=== PATIENT | male | born 1970 | race Caucasian/White ===

== ENCOUNTER 2017-06-16 15:29 | Emergency (ER) | payer MEDICAID ==
--- NOTE | 2017-06-16 16:27 | XRAY Report ---
EXAM: CHEST RADIOGRAPHY EXAM DATE: 06/16/2017 04:12 PM. CLINICAL HISTORY: Chest pain. COMPARISON: 06/09/2014. TECHNIQUE: 1 view. FINDINGS: Lungs/Pleura: No focal opacities evident. No pleural effusion. No pneumothorax. Mediastinum: Within exam limitations, the cardiomediastinal contour is normal. Other: There are old bilateral rib fractures without significant change. IMPRESSION: Old rib fractures. No acute cardiopulmonary abnormality. [facility] Referring Provider Line: [phone] SITE ID: [id number]
--- NOTE | 2017-06-16 16:56 | ED Physician Documentation ---
PD HPI CHEST PAIN - Stated complaint Stated Complaint: CHEST PX - Chief complaint Chief Complaint: Cardiac - History obtained from History obtained from: Patient - History of Present Illness Timing - onset: How many hours ago (5), Today (soon after lunch, feeling of discomfort and burning in epigastric area. Stomach fullness. Does have history of cardiomyopathy in the past.) Timing - onset during: Rest Timing - duration: Hours (5) Timing - details: Abrupt onset, Still present, Waxing and waning Quality: Pressure, Aching, Indigestion Location: Epigastric Radiation: Back Worsened by: No: Exertion, Inspiration, Movement Associated symptoms: Shortness of air. No: Diaphoresis, Nausea, Feeling faint / dizzy, Palpitations, Cough Similar symptoms before: Diagnosis (has had GERD in the past, also with history of cardiomyopathy in the past so concern of heart cause.) Recently seen: Not recently seen Review of Systems Constitutional: denies: Fever, Chills Nose: denies: Rhinorrhea / runny nose, Congestion Throat: denies: Sore throat Cardiac: denies: Chest pain / pressure, Palpitations, Pedal edema, Calf pain Respiratory: reports: Dyspnea. denies: Cough, Wheezing GI: reports: Abdominal Pain. denies: Nausea, Vomiting, Diarrhea, Bloody / black stool : denies: Dysuria, Frequency Skin: denies: Rash, Lesions Musculoskeletal: denies: Extremity swelling Neurologic: denies: Generalized weakness, Near syncope Endocrine: denies: Easy bruising / bleeding Immunocompromised: denies: Immunocompromised PD PAST MEDICAL HISTORY - Past Medical History Cardiovascular: Congestive heart failure, Hypertension, High cholesterol Respiratory: COPD, Shortness of breath Endocrine/Autoimmune: None GI: None : None HEENT: None Psych: None, Anxiety Musculoskeletal: None Derm: None - Past Surgical History Past Surgical History: Yes Ortho: Other - Present Medications Home Medications: Ambulatory Orders Medication Instructions Recorded Confirmed Carvedilol 3 tab PO BID 12/06/13 06/16/17 Lisinopril 15 mg PO DAILY 12/06/13 06/16/17 Mirtazapine [Remeron] 15 mg PO DAILY 12/06/13 06/16/17 Buspirone HCl 1 tab DAILY 06/09/14 06/16/17 Multivitamin [Multivitamins] 1 tab DAILY 06/09/14 06/16/17 raNITIdine [Zantac] 1 tab QPM 06/09/14 06/16/17 Furosemide [Lasix] 40 mg PO .FREQ 06/16/17 06/16/17 Omeprazole 20 mg PO 06/16/17 Ondansetron Odt [Zofran] 4 mg TL Q6H PRN #15 tablet 06/16/17 Prazosin [Minipress] 1 mg PO QPM 06/16/17 06/16/17 - Allergies Allergies/Adverse Reactions: Allergies Allergy/AdvReac Type Severity Reaction Status Date / Time No Known Drug Allergies Allergy Verified 06/16/17 15:38 - Social History Does the pt smoke?: No Smoking Status: Never smoker Does the pt drink ETOH?: No Does the pt have substance abuse?: No - Family History Family history: reports: Non contributory - Immunizations Immunizations are current?: No Immunizations: TDAP >10years/unknown - POLST Patient has POLST: No PD ED PE NORMAL - Vitals Vital signs reviewed: Yes - General General: Alert and oriented X 3, No acute distress, Well developed/nourished - HEENT HEENT: Moist mucous membranes, Pharynx benign - Neck Neck: Supple, no meningeal sign, No adenopathy - Cardiac Cardiac: RRR, No murmur - Respiratory Respiratory: Clear bilaterally - Abdomen Abdomen: Normal bowel sounds, Soft, Non distended, No organomegaly, Other (some tenderness in eipgastric area without guarding nor percussion tenderness. ) - Derm Derm: Normal color, Warm and dry - Extremities Extremities: No deformity, No tenderness to palpate, No edema, No calf tenderness / cord - Neuro Neuro: Alert and oriented X 3, No motor deficit, Normal speech - Psych Psych: Normal mood, Normal affect Results - Vitals Vitals: Vital Signs - 24 hr 06/16/17 06/16/17 15:35 17:35 Temperature 36.8 C Heart Rate 76 59 L Respiratory 18 18 Rate Blood Pressure 152/100 H 153/94 H O2 Saturation 100 100 Oxygen O2 Source Room air - EKG (time done) 15:51 Rate: Rate (enter#) (65) Rhythm: NSR [place]: Normal Intervals: Normal PA QRS: Normal Ischemia: Normal ST segments. No: ST elevation c/w ischemia, ST depression - Labs Labs: Laboratory Tests 06/16/17 06/16/17 06/16/17 17:05 17:05 17:05 WBC 13.1 H RBC 4.97 Hgb 14.9 Hct 44.7 MCV 90.0 MCH 30.0 MCHC 33.4 RDW 14.5 Plt Count 255 MPV 8.8 Neut # 10.5 H Lymph # 1.4 L [place] # 1.0 Eos # 0.1 Baso # 0.0 Absolute Nucleated RBC 0.00 Nucleated RBC % 0.0 Sodium 137 Potassium 4.3 Chloride 102 Carbon Dioxide 29 Anion Gap 6.0 BUN 14 Creatinine 0.7 Estimated GFR (MDRD) 120 Glucose 99 Calcium 9.2 Total Bilirubin 0.6 AST 114 H ALT 54 Alkaline Phosphatase 87 Troponin I < 0.04 Total Protein 7.4 Albumin 4.3 Globulin 3.1 Albumin/Globulin Ratio 1.4 Lipase 59 H - Rads (name of study) chest Radiology: Prelim report reviewed (no acute process), EMP read contemporaneously PD MEDICAL DECISION MAKING - ED course Complexity details: reviewed results, re-evaluated patient (improved well with GI cocktail. No signs of cardiac cause. Seems GI. ), considered differential, d/ w patient Departure - Departure Disposition: 01 Home, Self Care Clinical Impression: Epigastric pain Condition: Stable Record reviewed to determine appropriate education?: Yes Instructions: ED Epigastric Pain [facility] Follow-Up: Royce Wick MD [Primary Care Provider] - Prescriptions: Ondansetron Odt [Zofran] 4 mg TL Q6H PRN #15 tablet PRN Reason: Nausea / Vomiting Comments: This sounds to be an upset stomach or perhaps a viral illness. Use ondansetron if needed for nausea. You can use antacids such as Mylanta or Maalox and add some viscous lidocaine if needed for discomfort. Recheck if it persists beyond a day or 2 return sooner if other symptoms. Discharge Date/Time: 06/16/17 18:21
[2017-06-16 17:13] LABS: BASOPHILS % (AUTO) 0.2 %; EOSINOPHILS # (AUTO) 0.1 10^3/uL (0.0-0.7); EOSINOPHILS % (AUTO) 0.7 %; HGB - HEMOGLOBIN 14.9 g/dL (14.0-18.0); LYMPHOCYTES # (AUTO) 1.4 10^3/uL (1.5-3.5); LYMPHOCYTES % (AUTO) 10.8 %; MEAN CORPUSCULAR HGB CONC 33.4 g/dL (32.0-36.0); MEAN PLATELET VOLUME 8.8 fL (7.4-11.4); NEUTROPHILS # (AUTO) 10.5 10^3/uL (1.5-6.6); NEUTROPHILS % (AUTO) 80.3 %; PLT - PLATELET COUNT 255 10^3/uL (130-450); RED BLOOD COUNT 4.97 10^6/uL (4.70-6.10); RED CELL DISTRIBUTION WIDTH 14.5 % (12.0-15.0); WHITE BLOOD COUNT 13.1 x10^3/uL (4.8-10.8)
[2017-06-16] MEDS ORDERED: LIDOCAINE VISCOUS 2% 15 ML UDC MM STA ×2 (17:18→18:01)
[2017-06-16] MEDS ORDERED: ONDANSETRON 4 MG/2 ML VIAL IVP STA (17:18)
[2017-06-16] MEDS ORDERED: MAG HYDROX/AL HYDROX/SIMETH 30 ML UDC PO STA (17:18)
[2017-06-16 17:24] LABS: ALBUMIN 4.3 g/dL (3.2-5.5); ALBUMIN/GLOBULIN RATIO 1.4 (1.0-2.2); BILIRUBIN,TOTAL 0.6 mg/dL (0.2-1.0); CALCIUM 9.2 mg/dL (8.5-10.3); CREATININE 0.7 mg/dL (0.6-1.2); TOTAL PROTEIN 7.4 g/dL (6.7-8.2)
[2017-06-16 17:36] VITALS: BP 153/94
[2017-06-16] MEDS ORDERED: ONDANSETRON ODT 4 MG Prepack 2 TL PRN (18:01)
== END 2017-06-16 18:21 | disposition home or self-care (01) ==
LOC: ED 15:29
DX: R10.13 Epigastric pain (principal); I11.0 Hypertensive heart disease with heart failure; I50.9 Heart failure, unspecified; E78.00 Pure hypercholesterolemia, unspecified
CPT/HCPCS: 36415; 71045; 80053; 83690; 84484; 85025; 93005; 96374; 99283; 99284; A9270

== ENCOUNTER 2017-08-16 08:00 | Outpatient (CLI) | payer MEDICAID ==
[2017-08-16 19:13] LABS: ALBUMIN 4.4 g/dL (3.2-5.5); ALBUMIN/GLOBULIN RATIO 1.5 (1.0-2.2); ALKALINE PHOSPHATASE 74 IU/L (42-121); ALT ALANINE AMINOTRANSFERASE 16 IU/L (10-60); AST ASPARTATE AMINOTRANSFERASE 23 IU/L (10-42); BILIRUBIN,TOTAL 0.6 mg/dL (0.2-1.0); BUN - BLOOD UREA NITROGEN 14 mg/dL (6-20); CALCIUM 9.1 mg/dL (8.5-10.3); CARBON DIOXIDE - CO2 26 mmol/L (21-32); CHLORIDE 105 mmol/L (101-111); CHOL/HDL RATIO 2.7 (<5.0); CHOLESTEROL 126 mg/dL; CREATININE 0.7 mg/dL (0.6-1.2); GFR - MDRD 120 (>89); GLUCOSE 97 mg/dL (70-100); HDL CHOLESTEROL 47 mg/dL; LDL CHOLESTEROL,CALCULATED 70 mg/dL; LDL/HDL RATIO 1.5 (<3.6); SODIUM 138 mmol/L (135-145); TOTAL PROTEIN 7.4 g/dL (6.7-8.2); VLDL CHOLESTEROL 9 mg/dL
== END 2017-08-16 08:01 | disposition home or self-care (01) ==
LOC: LAB.N 08:00
PROVIDERS: ATTEND Internal Medicine Cardiovascular Disease
DX: Z86.79 Personal history of other diseases of the circulatory system (principal); Z87.898 Personal history of other specified conditions; R00.1 Bradycardia, unspecified; I10 Essential (primary) hypertension; R74.8 Abnormal levels of other serum enzymes
CPT/HCPCS: 36415; 80053; 80061; 83721

== ENCOUNTER 2017-10-16 15:45 | Emergency (ER) | payer OTHER, MEDICAID ==
[2017-10-16] MEDS ORDERED: DEXAMETHASONE 10 MG/ML VIAL PO STA (15:53)
--- NOTE | 2017-10-16 15:54 | ED Physician Documentation ---
History of Present Illness - Stated complaint Stated Complaint: FIT FOR CONFINEMENT - History obtained from History obtained from: Patient, Police - History of Present Illness Timing: Enter time (0), Last night Review of Systems Constitutional: denies: Fever Eyes: denies: Decreased vision Ears: denies: Ear pain Nose: denies: Rhinorrhea / runny nose, Congestion Throat: denies: Oral lesions / sores, Sore throat Cardiac: denies: Chest pain / pressure Respiratory: denies: Dyspnea, Cough GI: denies: Abdominal Pain, Nausea, Vomiting : denies: Dysuria, Frequency Skin: denies: Rash Musculoskeletal: reports: Neck pain, Back pain, Extremity pain. denies: Extremity swelling, Joint swelling Neurologic: denies: Generalized weakness, Focal weakness PD PAST MEDICAL HISTORY - Past Medical History Cardiovascular: Congestive heart failure, Hypertension, High cholesterol Respiratory: COPD, Shortness of breath Endocrine/Autoimmune: None GI: None : None HEENT: None Psych: None, Anxiety Musculoskeletal: None Derm: None - Past Surgical History Past Surgical History: Yes Ortho: Other - Present Medications Home Medications: Ambulatory Orders Medication Instructions Recorded Confirmed Carvedilol 3 tab PO BID 12/06/13 06/16/17 Lisinopril 15 mg PO DAILY 12/06/13 06/16/17 Mirtazapine [Remeron] 15 mg PO DAILY 12/06/13 06/16/17 Buspirone HCl 1 tab DAILY 06/09/14 06/16/17 Multivitamin [Multivitamins] 1 tab DAILY 06/09/14 06/16/17 raNITIdine [Zantac] 1 tab QPM 06/09/14 06/16/17 Furosemide [Lasix] 40 mg PO .FREQ 06/16/17 06/16/17 Omeprazole 20 mg PO 06/16/17 Ondansetron Odt [Zofran] 4 mg TL Q6H PRN #15 tablet 06/16/17 Prazosin [Minipress] 1 mg PO QPM 06/16/17 06/16/17 - Allergies Allergies/Adverse Reactions: Allergies Allergy/AdvReac Type Severity Reaction Status Date / Time No Known Drug Allergies Allergy Verified 10/16/17 16:33 - Social History Does the pt smoke?: No Smoking Status: Never smoker Does the pt drink ETOH?: No Does the pt have substance abuse?: No - Immunizations Immunizations are current?: No Immunizations: TDAP >10years/unknown - POLST Patient has POLST: No PD ED PE NORMAL - Vitals Vital signs reviewed: Yes (normal ) - General General: Alert and oriented X 3, No acute distress, Well developed/nourished - HEENT HEENT: Atraumatic, PERRL, EOMI - Neck Neck: Supple, no meningeal sign, No bony TTP, Other (There is some mild tenderness to the left neck muscles extending to the shoulder. There is pain to the center of the back at the T4 level ) - Cardiac Cardiac: RRR, No murmur - Respiratory Respiratory: No respiratory distress, Clear bilaterally - Abdomen Abdomen: Soft, Non tender - Back Back: No CVA TTP, No spinal TTP - Derm Derm: Normal color, Warm and dry, No rash - Extremities Extremities: No deformity, No edema, Other (There is some tenderness to the supraspinatous on the left side. ) - Neuro Neuro: No motor deficit, No sensory deficit Eye Opening: Spontaneous Motor: Obeys Commands Verbal: Oriented GCS Score: 15 - Psych Psych: Normal mood, Normal affect Results - Vitals Vitals: Vital Signs - 24 hr 10/16/17 10/16/17 15:50 16:35 Temperature 36.4 C L 36.9 C Heart Rate 78 72 Respiratory 16 16 Rate Blood Pressure 112/78 103/70 O2 Saturation 97 99 Oxygen O2 Source Room air - EKG (time done) 1534 Rate: Rate (enter#) (69) Rhythm: NSR [place]: RAD Compare to prior EKG: Unchanged from prior EKG (06-16-17) Computer interpretation: Agree with computer - Labs Labs: Laboratory Tests 10/16/17 10/16/17 10/16/17 16:00 16:00 16:00 WBC 15.9 H RBC 4.86 Hgb 14.3 Hct 43.4 MCV 89.3 MCH 29.4 MCHC 32.9 RDW 14.0 Plt Count 243 MPV 9.4 Manual Slide Review Indicated Sodium 132 L Potassium 4.4 Chloride 98 L Carbon Dioxide 27 Anion Gap 7.0 BUN 16 Creatinine 0.8 Estimated GFR (MDRD) 103 Glucose 119 H Calcium 9.1 Total Bilirubin 0.8 AST 22 ALT 20 Alkaline Phosphatase 72 Troponin I < 0.04 B-Natriuretic Peptide Total Protein 7.1 Albumin 3.8 Globulin 3.3 Albumin/Globulin Ratio 1.2 Lipase 28 10/16/17 16:00 WBC RBC Hgb Hct MCV MCH MCHC RDW Plt Count MPV Manual Slide Review Sodium Potassium Chloride Carbon Dioxide Anion Gap BUN Creatinine Estimated GFR (MDRD) Glucose Calcium Total Bilirubin AST ALT Alkaline Phosphatase Troponin I B-Natriuretic Peptide 33 Total Protein Albumin Globulin Albumin/Globulin Ratio Lipase PD MEDICAL DECISION MAKING - ED course Complexity details: reviewed old records, reviewed results, re-evaluated patient , considered differential, d/w patient ED course: 47 y/o male with a prior history of CHF has developed some left shoulder pain and the pain appears to be related to his neck and upper back. He is evaluated for cardiac causes of pain in the arm secondary to his past history and there is no evidence of abnormality to any of the components tested. He appears fit for confinement and he is administered decadron 10mg PO for spastic torticollis. Departure - Departure Disposition: 01 Home, Self Care Clinical Impression: Spastic torticollis Condition: Stable Instructions: ED Neck Pain No Trauma Follow-Up: Royce Wick MD [Primary Care Provider] - Discharge Date/Time: 10/16/17 17:30
[2017-10-16] MEDS ORDERED: CHERRY SYRUP 10 ML UDC PO ONE (16:13)
[2017-10-16 16:18] LABS: BASOPHILS % (AUTO) 0.1 %; EOSINOPHILS % (AUTO) 0.2 %; HGB - HEMOGLOBIN 14.3 g/dL (14.0-18.0); LYMPHOCYTES % (AUTO) 9.2 %; MEAN CORPUSCULAR HEMOGLOBIN 29.4 pg (27.0-31.0); MEAN CORPUSCULAR HGB CONC 32.9 g/dL (32.0-36.0); MEAN CORPUSCULAR VOLUME 89.3 fL (80.0-94.0); MEAN PLATELET VOLUME 9.4 fL (7.4-11.4); MONOCYTES % (AUTO) 12.3 %; NEUTROPHILS % (AUTO) 78.2 %; PLT - PLATELET COUNT 243 10^3/uL (130-450); RED BLOOD COUNT 4.86 10^6/uL (4.70-6.10); WHITE BLOOD COUNT 15.9 x10^3/uL (4.8-10.8)
[2017-10-16 16:31] LABS: ABNORMAL LYMPHS % (MANUAL) 0 %; BAND NEUTROPHILS % (MANUAL) 0 %
[2017-10-16 16:36] VITALS: BP 103/70
[2017-10-16 16:39] LABS: ALBUMIN 3.8 g/dL (3.2-5.5); ALBUMIN/GLOBULIN RATIO 1.2 (1.0-2.2); BILIRUBIN,TOTAL 0.8 mg/dL (0.2-1.0); CALCIUM 9.1 mg/dL (8.5-10.3); CREATININE 0.8 mg/dL (0.6-1.2); TOTAL PROTEIN 7.1 g/dL (6.7-8.2)
[2017-10-16 18:10] LABS: LYMPHOCYTES # (MANUAL) 0.6 10^3/uL (1.5-3.5); LYMPHOCYTES % (MANUAL) 4 %; MONOCYTES # (MANUAL) 1.6 10^3/uL (0.0-1.0); NEUTROPHILS # (MANUAL) 13.7 10^3/uL (1.5-6.6); NEUTROPHILS % (MANUAL) 86 %; PLATELET ESTIMATE, MANUAL NORMAL (130-450,000) (NORMAL); PLATELET MORPHOLOGY NORMAL APPEARANCE (NORMAL); RBC MORPHOLOGY (MULTIPLE) NORMAL APPEARANCE (NORMAL)
== END 2017-10-16 17:30 | disposition home or self-care (01) ==
LOC: ED 15:45
DX: M43.6 Torticollis (principal); I11.0 Hypertensive heart disease with heart failure; I50.9 Heart failure, unspecified; E78.00 Pure hypercholesterolemia, unspecified
CPT/HCPCS: 36415; 80053; 83690; 83880; 84484; 85025; 93005; 99283; A9270

== ENCOUNTER 2018-08-27 08:58 | Outpatient (CLI) | payer MEDICAID ==
--- NOTE | 2018-08-27 13:32 | XRAY Report ---
Reason: wrist joint pain right Procedure Date: 08/27/2018 Accession Number: [id number] / [id number] Procedure: XRN - Wrist 4 View RT CPT Code: FULL RESULT: EXAM: RIGHT WRIST RADIOGRAPHY EXAM DATE: 08/27/2018 09:16 AM. CLINICAL HISTORY: Wrist joint pain right. COMPARISON: 08/16/2015 11:18 AM. TECHNIQUE: 4 views. FINDINGS: Bones: There is a chronic nonunited fracture at the mid pole of the scaphoid bone. There is abnormal sclerosis to the proximal pole and there has been slight further loss of height of residual scaphoid fragments and slight increase in dorsal osteophyte. No acute fracture. Joints: As above. Other intercarpal joint spaces appear normal. Soft Tissues: Mild dorsal soft tissue swelling. 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 [facility]
== END 2018-08-27 08:59 | disposition home or self-care (01) ==
LOC: DI.N 08:58
PROVIDERS: ATTEND Physician Assistant Medical
DX: S62.021K Displaced fracture of middle third of navicular [scaphoid] bone of right wrist, subsequent encounter for fracture with nonunion (principal); M19.031 Primary osteoarthritis, right wrist

== ENCOUNTER 2020-01-15 21:01 | Outpatient (CLI) | payer MEDICAID ==
[2020-01-15 17:55] LABS: BASOPHILS % (AUTO) 0.5 %; EOSINOPHILS # (AUTO) 0.2 10^3/uL (0.0-0.7); EOSINOPHILS % (AUTO) 2.1 %; HGB - HEMOGLOBIN 14.3 g/dL (14.0-18.0); LYMPHOCYTES # (AUTO) 3.3 10^3/uL (1.5-3.5); LYMPHOCYTES % (AUTO) 43.7 %; MEAN CORPUSCULAR HEMOGLOBIN 30.6 pg (27.0-31.0); MEAN CORPUSCULAR HGB CONC 32.9 g/dL (32.0-36.0); MEAN CORPUSCULAR VOLUME 92.7 fL (80.0-94.0); MEAN PLATELET VOLUME 12.1 fL (7.4-11.4); MONOCYTES # (AUTO) 0.9 10^3/uL (0.0-1.0); MONOCYTES % (AUTO) 11.6 %; NEUTROPHILS # (AUTO) 3.2 10^3/uL (1.5-6.6); NEUTROPHILS % (AUTO) 41.8 %; PLT - PLATELET COUNT 248 10^3/uL (130-450); RED BLOOD COUNT 4.68 10^6/uL (4.70-6.10); RED CELL DISTRIBUTION WIDTH 13.7 % (12.0-15.0); WHITE BLOOD COUNT 7.6 x10^3/uL (4.8-10.8)
[2020-01-15 18:23] LABS: ALBUMIN 4.4 g/dL (3.2-5.5); ALBUMIN/GLOBULIN RATIO 1.4 (1.0-2.2); ALKALINE PHOSPHATASE 97 IU/L (42-121); ALT ALANINE AMINOTRANSFERASE 23 IU/L (10-60); AST ASPARTATE AMINOTRANSFERASE 27 IU/L (10-42); BILIRUBIN,TOTAL 0.5 mg/dL (0.2-1.0); BUN - BLOOD UREA NITROGEN 17 mg/dL (6-20); CALCIUM 9.3 mg/dL (8.5-10.3); CARBON DIOXIDE - CO2 30 mmol/L (21-32); CHLORIDE 102 mmol/L (101-111); CHOLESTEROL 144 mg/dL; CREATININE 0.9 mg/dL (0.6-1.2); GLUCOSE 90 mg/dL (70-100); HDL CHOLESTEROL 36 mg/dL; LDL CHOLESTEROL,CALCULATED 74 mg/dL; LDL/HDL RATIO 2.1 (<3.6); SODIUM 138 mmol/L (135-145); TOTAL PROTEIN 7.5 g/dL (6.7-8.2); VLDL CHOLESTEROL 34 mg/dL
== END 2020-01-15 23:59 | disposition home or self-care (01) ==
LOC: LAB.WCP 21:01
PROVIDERS: ATTEND Nurse Practitioner Family
DX: Z51.81 Encounter for therapeutic drug level monitoring (principal); I10 Essential (primary) hypertension; Z79.899 Other long term (current) drug therapy
CPT/HCPCS: 36415; 80053; 80061; 83721; 84153; 85025

== ENCOUNTER 2020-06-13 10:33 | Outpatient (CLI) | payer MEDICAID | END 2020-06-13 23:59 | disposition home or self-care (01) | LOC: LAB.WCP 10:33 | PROVIDERS: ATTEND Nurse Practitioner | DX: I49.1 Atrial premature depolarization (principal) | CPT/HCPCS: 36415; 83735; 84443 ==

== ENCOUNTER 2020-10-25 03:26 | Emergency (ER) | payer MEDICAID ==
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
[2020-10-25] MEDS ORDERED: IBUPROFEN 600 MG TABLET PO STA (04:36)
[2020-10-25] MEDS ORDERED: ACETAMINOPHEN 325 MG TABLET PO STA (04:36)
[2020-10-25] MEDS ORDERED: HYDROcod/ACETAM 5/325 MG TABLET PO STA (06:11)
[2020-10-25 06:27] VITALS: BP 108/82
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
== END 2020-10-25 06:30 | disposition home or self-care (01) ==
LOC: ED 03:26
DX: S42.024A Nondisplaced fracture of shaft of right clavicle, initial encounter for closed fracture (principal); S09.21XA Traumatic rupture of right ear drum, initial encounter; S09.90XA Unspecified injury of head, initial encounter; R41.0 Disorientation, unspecified; R11.0 Nausea; M54.2 Cervicalgia; V18.0XXA Pedal cycle driver injured in noncollision transport accident in nontraffic accident, initial encounter; Y93.55 Activity, bike riding; Y92.410 Unspecified street and highway as the place of occurrence of the external cause; I10 Essential (primary) hypertension; Z72.0 Tobacco use
CPT/HCPCS: 70450; 72125; 73000; 99284; A9270

== ENCOUNTER 2020-12-15 18:37 | Outpatient (CLI) | payer MEDICAID ==
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
== END 2020-12-15 23:59 | disposition home or self-care (01) ==
LOC: DI.N 18:37
PROVIDERS: ATTEND Orthopaedic Surgery
DX: S42.021D Displaced fracture of shaft of right clavicle, subsequent encounter for fracture with routine healing (principal)

== ENCOUNTER 2021-01-31 08:00 | Outpatient (CLI) | payer MEDICAID ==
--- NOTE | 2021-01-31 12:31 | XRAY Report ---
PROCEDURE: Clavicle RT INDICATIONS: DISPLACED FX OF SHAFT OF R CLAVICLE TECHNIQUE: 2 views of the clavicle were acquired. COMPARISON: 12/15/2020. FINDINGS: Bones: Again noted is mid clavicular shaft fracture with up to 2.3 cm depression at 2.5 cm overlappin g of fracture site. Callus formation surrounding clavicular shaft fracture site is seen. No suspiciou s bony lesions. Soft tissues: No suspicious soft tissue calcifications. IMPRESSION: Callus formation surrounding mid clavicular shaft fracture site with interval slight worsening of dep ression and overlapping at clavicular shaft fracture site as above. Reviewed by: Janak Bush MD on 01/31/2021 12:30 PM PDT Approved by: Janak Bush MD on 01/31/2021 12:30 PM PDT Station ID: [id number]
== END 2021-01-31 23:59 | disposition home or self-care (01) ==
LOC: DI.N 08:00
PROVIDERS: ATTEND Orthopaedic Surgery
DX: S42.021D Displaced fracture of shaft of right clavicle, subsequent encounter for fracture with routine healing (principal)

== ENCOUNTER 2021-06-16 08:00 | Outpatient (CLI) | payer MEDICAID ==
[2021-06-16 17:53] LABS: BASOPHILS % (AUTO) 0.2 %; EOSINOPHILS # (AUTO) 0.1 10^3/uL (0.0-0.7); HCT - HEMATOCRIT 45.3 % (42.0-52.0); HGB - HEMOGLOBIN 14.8 g/dL (14.0-18.0); LYMPHOCYTES # (AUTO) 2.8 10^3/uL (1.5-3.5); MEAN CORPUSCULAR HEMOGLOBIN 29.7 pg (27.0-31.0); MEAN CORPUSCULAR HGB CONC 32.7 g/dL (32.0-36.0); MEAN CORPUSCULAR VOLUME 90.8 fL (80.0-94.0); MONOCYTES # (AUTO) 0.7 10^3/uL (0.0-1.0); MONOCYTES % (AUTO) 6.3 %; NEUTROPHILS # (AUTO) 7.1 10^3/uL (1.5-6.6); PLT - PLATELET COUNT 349 10^3/uL (130-450); RED BLOOD COUNT 4.99 10^6/uL (4.70-6.10); RED CELL DISTRIBUTION WIDTH 13.5 % (12.0-15.0); WHITE BLOOD COUNT 10.8 x10^3/uL (4.8-10.8)
[2021-06-16 17:57] LABS: ALBUMIN 3.7 g/dL (3.2-5.5); BILIRUBIN,TOTAL 0.5 mg/dL (0.2-1.0); CALCIUM 9.1 mg/dL (8.5-10.3); CREATININE 0.7 mg/dL (0.6-1.2); TOTAL PROTEIN 7.3 g/dL (6.7-8.2)
== END 2021-06-16 23:59 ==
LOC: LAB.N 08:00
PROVIDERS: ATTEND Physician Assistant
DX: R21 Rash and other nonspecific skin eruption (principal)
CPT/HCPCS: 36415; 80053; 85025

== ENCOUNTER 2022-10-19 08:33 | Outpatient (CLI) | payer MEDICAID ==
[2022-10-19 11:48] LABS: BASOPHILS % (AUTO) 0.5 %; EOSINOPHILS # (AUTO) 0.2 10^3/uL (0.0-0.7); EOSINOPHILS % (AUTO) 2.3 %; HCT - HEMATOCRIT 45.6 % (42.0-52.0); HGB - HEMOGLOBIN 15.2 g/dL (14.0-18.0); LYMPHOCYTES # (AUTO) 2.5 10^3/uL (1.5-3.5); LYMPHOCYTES % (AUTO) 27.7 %; MEAN CORPUSCULAR HEMOGLOBIN 29.7 pg (27.0-31.0); MEAN CORPUSCULAR HGB CONC 33.3 g/dL (32.0-36.0); MEAN CORPUSCULAR VOLUME 89.1 fL (80.0-94.0); MEAN PLATELET VOLUME 12.2 fL (7.4-11.4); MONOCYTES # (AUTO) 0.8 10^3/uL (0.0-1.0); MONOCYTES % (AUTO) 8.7 %; NEUTROPHILS # (AUTO) 5.4 10^3/uL (1.5-6.6); NEUTROPHILS % (AUTO) 60.6 %; PLT - PLATELET COUNT 205 10^3/uL (130-450); RED BLOOD COUNT 5.12 10^6/uL (4.70-6.10); RED CELL DISTRIBUTION WIDTH 13.7 % (12.0-15.0); WHITE BLOOD COUNT 8.8 x10^3/uL (4.8-10.8)
[2022-10-19 12:15] LABS: THYROID STIMULATING HORMONE 0.56 uIU/mL (0.34-5.60)
[2022-10-19 14:01] LABS: ALBUMIN/GLOBULIN RATIO 1.1 (1.0-2.2); BILIRUBIN,TOTAL 0.6 mg/dL (0.2-1.0); CALCIUM 9.1 mg/dL (8.5-10.3); CREATININE 0.8 mg/dL (0.6-1.2); POTASSIUM 3.8 mmol/L (3.5-5.0); TOTAL PROTEIN 7.6 g/dL (6.7-8.2)
[2022-10-19 14:08] LABS: CHOL/HDL RATIO 3.7 (<5.0); CHOLESTEROL 141 mg/dL; HDL CHOLESTEROL 38 mg/dL; LDL CHOLESTEROL,CALCULATED 79 mg/dL; LDL/HDL RATIO 2.1 (<3.6); TRIGLYCERIDES 122 mg/dL; VLDL CHOLESTEROL 24 mg/dL
== END 2022-10-19 08:34 | disposition home or self-care (01) ==
LOC: LAB.N 08:33
PROVIDERS: ATTEND Internal Medicine
DX: I42.0 Dilated cardiomyopathy (principal); I24.9 Acute ischemic heart disease, unspecified; Z12.5 Encounter for screening for malignant neoplasm of prostate; F41.9 Anxiety disorder, unspecified; F32.A Depression, unspecified
CPT/HCPCS: 36415; 80053; 80061; 83721; 84153; 84443; 85025

== ENCOUNTER 2023-06-25 11:59 | Outpatient (CLI) | payer MEDICAID ==
--- NOTE | 2023-06-25 14:11 | MRI Report ---
PROCEDURE: Brain WO INDICATIONS: MEMORY IMPAIRMENT TECHNIQUE: Noncontrast axial T1 spin echo, axial T2 fast spin echo, sagittal and axial FLAIR, coronal T2 fast sp in echo, axial gradient echo, axial diffusion and ADC through the brain. COMPARISON: CT head 11/13/2020 FINDINGS: Image quality: Excellent. CSF Spaces: Basal cisterns are patent. No extra-axial fluid collections. Ventricles are normal in size and shape. Brain: No intracranial masses or hemorrhage. [place]/white matter interface is normal. Brainstem appe ars normal. Diffusion-weighted images demonstrate no acute ischemic insult. Mild age-related global volume loss and chronic microvascular ischemic changes. No chronic ischemic insults. Normal intravas cular flow voids are present. Skull and face: Calvarium has normal marrow signal. Orbits appear normal. Sinuses: Sinuses and mastoids are clear. IMPRESSION: 1.Mild age-related global volume loss and chronic microvascular ischemic changes. 2.No acute intracranial abnormalities. Reviewed by: Chandana Riggs MD on 06/25/2023 2:10 PM PST Approved by: Chandana Riggs MD on 06/25/2023 2:10 PM PST Station ID: [id number]
== END 2023-06-25 12:00 | disposition home or self-care (01) ==
LOC: DI 11:59
PROVIDERS: ATTEND Internal Medicine
DX: R41.3 Other amnesia (principal); F15.21 Other stimulant dependence, in remission; Z87.828 Personal history of other (healed) physical injury and trauma; G31.89 Other specified degenerative diseases of nervous system; I67.82 Cerebral ischemia